=== PATIENT | male | born 1945 | race Caucasian/White ===

== ENCOUNTER 2017-06-06 17:59 | Emergency (ER) | payer MEDICARE ==
[~2017-06-06] VITALS: Ht 188 cm; Wt 127.0 kg
[~2017-06-06 17:59] MED LIST: AVELOX400 MG PO; CRESTOR10 MG PO; DILAUDID4 MG PO; DOXAZOSIN4 MG PO; LISINOPRIL5 MG PO; LOVENOX 4040 MG/0.4 SC; LYRICA150 MG PO; METFORMIN500 MG PO; METOPROL TAR100 MG PO; OXYGEN; STOOL SOFTENER100 M1 PO
[2017-06-06 18:40] LABS: HEMATOCRIT 22.9 % (39.0-50.0); HEMOGLOBIN 7.5 g/dl (14.0-18.0); IMMATURE GRANULOCYTES 1.1 % (0.0-1.0); MEAN CELL VOLUME 95.4 fL CALC (80.0-100.0); MEAN CORPUSCULAR HGB 31.3 pG CALC (26.0-32.0); MEAN CORPUSCULAR HGB CONC 32.8 g/L CALC (32.0-36.0); PLATELET COUNT 144 thou/uL (130-400); RED CELL DISTRI WIDTH 15.4 % (11.5-15.5)
[2017-06-06 18:52] LABS: ALBUMIN 2.6 g/dL (3.2-5.0); ALKALINE PHOSPHATASE 50 u/l (38-126); AMYLASE 43 u/l (30-110); ANION GAP 17 (6-22 (CALC)); BILIRUBIN, TOTAL 0.5 mg/dL (0.0-1.4); BUN 58 mg/dL (8-23); BUN/CREATININE RATIO 43 (12-20 (CALC)); CALCIUM 9.1 mg/dL (8.4-10.2); CARBON DIOXIDE 21 mmol/l (22-30); CHLORIDE 108 mmol/l (95-108); CREATININE 1.3 mg/dL (0.7-1.3); GFR 54 ML/MIN (>=60 (CALC)); GFR FOR AFR.AMER. > 60 ML/MIN (>=60 (CALC)); GLUCOSE 169 mg/dL (82-115); LIPASE 294 u/l (23-300); SGOT/AST 25 u/l (19-48); SGPT/ALT 27 u/l (11-66); SODIUM 141 mmol/l (137-146); TOTAL PROTEIN 4.9 g/dL (6.3-8.2)
[2017-06-06 19:00] LABS: BAND 5 % (0-8); HYPOCHROMIA FEW; MANUAL DIFFERENTIAL YES
[2017-06-06 19:01] LABS: INTERNATIONAL NORMALIZED RATIO 1.2 RATIO (0.7-1.3); PROTHROMBIN TIME 12.9 SECONDS (9.0-12.5)
[2017-06-06 19:02] LABS: MYOGLOBIN 35 ng/mL (0 - 121)
[2017-06-06 20:20] VITALS: BP 92/44
[2017-06-06 21:09] VITALS: BP 98/52
== END 2017-06-06 20:15 ==
LOC: ED 17:59
PROVIDERS: Emergency Medicine
PROC: 30233N1 Transfusion of Nonautologous Red Blood Cells into Peripheral Vein, Percutaneous Approach (ICD-10-PCS; principal; 2017-06-06)
DX: K92.2 Gastrointestinal hemorrhage, unspecified (principal); K74.60 Unspecified cirrhosis of liver; I10 Essential (primary) hypertension; E11.9 Type 2 diabetes mellitus without complications; Z79.84 Long term (current) use of oral hypoglycemic drugs; R53.1 Weakness; Z79.82 Long term (current) use of aspirin; Z99.81 Dependence on supplemental oxygen; N20.0 Calculus of kidney
CPT/HCPCS: P9016; S0164

== ENCOUNTER 2018-05-16 14:57 | Observation (INO) | payer MEDICARE ==
[~2018-05-16] VITALS: Ht 188 cm; Wt 139.0 kg
[~2018-05-16 14:57] MED LIST changes: +ACCUPRIL5 MG PO; +ASPIRIN325 MG PO; +DILAUDID2 MG PO; +KRISTALOSE20 GM PO; +MONDOXYNE NL100 MG PO; +PANTOPRAZOLE SO40 MG PO; +TOUJEO SOL300 UNIT/M SC; +XIFAXAN550 MG PO
--- NOTE | 2018-05-16 15:14 | NUR ---
PT TO ROOM VIA WHEELCHAIR FOR BEDSDIE TRIAGE.
--- NOTE | 2018-05-16 15:30 | NUR ---
IV INITATED AND LABS COLLECTED. PT'S REPORTS PERIODS OF CONFUSION STARTING THIS MORNING, WITH GENERALIZED WEAKNESS AND NAUSEA. PT A&O X3 AT THIS TIME AND ANSWERS QUESTIONS APPROPRIATELY. AND SOFT, NON TENDER UPON PALPATION, LS CLEAR BUT DIMINISHED IN THE BILATERAL LOWER LOBES. +1 BILATERAL PITTING EDEMA TO THE LOWER EXTREMITIES NOTED. PT AND AWARE OF PLAN OF CARE AND WAIT TIME. [facility]
[2018-05-16 16:00] LABS: URINE BILIRUBIN - DIPSTICK NEGATIVE (NEGATIVE); URINE BLOOD DIPSTICK MODERATE (NEGATIVE); URINE COLOR YELLOW; URINE GLUCOSE - DIPSTICK NEGATIVE (NEGATIVE); URINE KETONE NEGATIVE (NEGATIVE); URINE LEUK ESTERASE NEGATIVE (NEGATIVE); URINE NITRITE - DIPSTICK NEGATIVE (Negative); URINE PROTEIN - DIPSTICK NEGATIVE (NEG-TRACE); URINE SPECIFIC GRAVITY <=1.005; URINE UROBILINOGEN - DIPSTICK 0.2 E.U./dL (0.2)
[2018-05-16 16:01] LABS: URINE CLARITY CLEAR
[2018-05-16 16:02] LABS: HEMATOCRIT 38.3 % (39.0-50.0); HEMOGLOBIN 12.8 g/dl (14.0-18.0); MEAN CELL VOLUME 90.8 fL CALC (80.0-100.0); MEAN CORPUSCULAR HGB 30.3 pG CALC (26.0-32.0); MEAN CORPUSCULAR HGB CONC 33.4 g/L CALC (32.0-36.0); NEUT# 2.67 thou/uL (1.82-7.42); RED BLOOD COUNT 4.22 mill/uL (4.70-6.10); RED CELL DISTRI WIDTH 14.6 % (11.5-15.5)
[2018-05-16 16:09] LABS: URINE WBC 0-2 WBC/hpf (0-5)
[2018-05-16 16:13] LABS: INTERNATIONAL NORMALIZED RATIO 1.1 RATIO (0.7-1.3); PROTHROMBIN TIME 12.1 SECONDS (9.0-12.5)
[2018-05-16 16:22] LABS: ALBUMIN 3.7 g/dL (3.2-5.0); ALKALINE PHOSPHATASE 108 u/l (38-126); AMYLASE 84 u/l (30-110); ANION GAP 16 (6-22 (CALC)); BUN 18 mg/dL (8-23); BUN/CREATININE RATIO 17 (12-20 (CALC)); CARBON DIOXIDE 21 mmol/l (22-30); CHLORIDE 110 mmol/l (95-108); CREATININE 1.1 mg/dL (0.7-1.3); GFR > 60 ML/MIN (>=60 (CALC)); GFR FOR AFR.AMER. > 60 ML/MIN (>=60 (CALC)); LIPASE 198 u/l (23-300); POTASSIUM 4.2 mmol/l (3.5-5.1); SGOT/AST 42 u/l (19-48); SGPT/ALT 29 u/l (11-66); SODIUM 143 mmol/l (137-146); TOTAL PROTEIN 7.4 g/dL (6.3-8.2)
--- NOTE | 2018-05-16 16:30 | NUR ---
PT RESTING IN STRETCHER WITH EYES CLOSED BUT AWAKENS TO VERBAL STUIMULI. PT AWARE OF PENDING RESULTS AND WAIT TIME. CALL [facility] WITHIN REACH, WILL CONITNUE TO MONITOR.
[2018-05-16 16:33] LABS: MYOGLOBIN 84 ng/mL (0 - 121)
--- NOTE | 2018-05-16 17:00 | NUR ---
UNABLE TO RECONCILE MEDICATIONS AT THIS TIME. WILL BRING LIST IF PT IS ADMITTED.
--- NOTE | 2018-05-16 18:00 | NUR ---
MD AT BEDSIDE TO DISCUSS RESULTS AND PLAN FOR ADMISSION.
--- NOTE | 2018-05-16 18:08 | NUR ---
PT VOIDED 200 MLS OF PALE YELLOW URINE.
--- NOTE | 2018-05-16 18:18 | NUR ---
REPORT CALLED TO SHADI MOREIRA.
--- NOTE | 2018-05-16 18:30 | NUR ---
Admission Note Report Given to: SBAR PRINTED TO FLOOR Transported by: Wheelchair X Stretcher Transported with: X Nurse Transporter X Patent IV O2 X Shoe Stitcher
--- NOTE | 2018-05-16 18:33 | NUR ---
PT ARRIVED TO FLOOR VIA STRETCHER ACCOMPANIED BY JASON GRACE AND SPOUSE IN STABLE CONDITION;PT SELF TRANSFERRED TO BED WITH 2 PERSON ASSIST;RESPIRATIONS EVEN AND UNLABORED ON RA;PT REPORTS CHRONIC BACK PAIN AT TIMES;PT ORIENTED TO ROOM AND CAll LIGHT SYSTEM AND VERBALIZES UNDERSTANDING;FALL PRECAUTIONS IN PLACE WITH BED IN THE LOWEST POSITION;CALL LIGHT IN REACH;WILL CONTINUE TO MONITOR
[2018-05-16 18:35] VITALS: BP 118/60
--- NOTE | 2018-05-16 20:00 | NUR ---
PATIENT RESTING IN BED AT THIS TIME. PATIENT IS AWAKE ALERT AND ORIENTEDX3. PATIENT WITH TELE MONITORING DEVICE IN PLACE. IV SITE TO LEFT AC INTACT. AT BEDSIDE WITH PATIENT MEDS. CALL PLACED TO DR. QUEEN AND MED ORDERS RECIEVED. PATIENT TAKES HYDROMORPHONE HCL ER 8MG THAT IS NOT STOCKED HERE. LEFT HIS PERSCRIPTION HERE. PILLS WERE COUNTED AND HAD 17 PILLS-VERIFIED WITH Yasmin BUENO RN. SECURED IN MED ROOM IN SECURED BAG FOR PHARM IN AM. PATIENT TAKING PO FLUIDS AND TOLERATED WELL. ORIENTED TO ROOM AND SURROUNDINGS. INSTRUCTED ON USE OF NURSE CALL LIGHT SYSTEM. SAFETY PRECAUTIONS REVIEWED WITH PATIENT. CALL LIGHT IN REACH. WILL CONT TO MONITOR.
--- NOTE | 2018-05-16 22:00 | NUR ---
PATIENT RESTING IN BED. MEDICATED FOR BREAKTHRU PAIN WITH DILAUDID 2MG PO. IVF NS HUNG AND INFUSING AT 80CC/HR. C-PAP AT BEDSIDE. VOIDING OLEGARIO URINE IN URINAL. SAFETY PRECAUTIONS REINFORCED.CALL LIGHT IN REACH. WILL CONT TO MONITOR.
[2018-05-17] VITALS (7 sets, daily range): BP systolic 98–130; BP diastolic 45–58
--- NOTE | 2018-05-17 03:30 | NUR ---
PATIENT RESTING IN BED WITH C-PAP IN PLACE-APPEARS SLEEPING WITH EYES CLOSED. IVF PATENT AND INFUSING AT 80CC/HR. TELE MONITOR IN PLACE. CALL LIGHT IN REACH. WILL CONT TO MONITOR.
--- NOTE | 2018-05-17 06:43 | NUR ---
PATIENT RESTING IN BED-IVF NS PATENT AND INFUSING VIA LEFT AC SITE AT 80CC/HR. PATIENT MEDICATED WITH DILAUDID 2MG MG PO FOR BREAKTHRU PAIN. C-PAP AT BEDSIDE. CALL LIGHT IN REACH. WILL CONT TO MONITOR.
--- NOTE | 2018-05-17 08:30 | NUR ---
RECEIVED PT IN HIGH FOWLERS POSITION, ALERT, BREATH SOUNDS ARE CLEAR, BILATERALLY, NO C/O SOB, HR IS REG,PULSES ARE STRONG X4, ABD IS SOFT WITH ACTIVE BS, IV SITE IS FREE FROM REDNESS OR EDEMA. TELE MONITOR IN PLACE. CONTINUE TO OSBERVE AND MONITOR.
[2018-05-17] MEDS ORDERED: CARDURA4 MG PO (11:01)
[2018-05-17] MEDS ORDERED: METOPROL TAR25 MG PO (11:02)
[2018-05-17] MEDS ORDERED: ASPIRIN325 MG PO (11:02)
[2018-05-17] MEDS ORDERED: LISINOPRIL5 MG PO (11:03)
[2018-05-17] MEDS ORDERED: TOUJEO SOL300 UNIT/M SC (11:04)
[2018-05-17] MEDS ORDERED: PANTOPRAZOLE SO40 MG PO (11:04)
[2018-05-17] MEDS ORDERED: DOXYCYCL HYC100 MG PO (11:04)
[2018-05-17] MEDS ORDERED: CONSTULOSE10 GM/15 M PO (11:05)
[2018-05-17] MEDS ORDERED: XIFAXAN550 MG PO (11:06)
[2018-05-17] MEDS ORDERED: FUROSEMIDE20 MG PO (11:06)
[2018-05-17] MEDS ORDERED: PROBIOTI2 PO (11:07)
--- NOTE | 2018-05-17 12:30 | NUR ---
PT IS RELAXING IN BED WITH NO DISTRESS NOTED. IV SITE IS FREE FROM REDNESS OR EDEMA. TELE MONITOR IN PLACE.,
--- NOTE | 2018-05-17 15:14 | NUR ---
PT TO TIRED TO GET WASHED UP RIGHT NOW. PT WAS ASSISTED TO RECLINER FROM BED WITH WALKER. STAND BY ON ONE SIDE ASSOCIATE PROFESSOR OF ENGLISH ON THE OTHER. PT STEADY WITH WALKER. CALL [facility] IN REACH. LINENS CHANGED AT THIS TIME.
--- NOTE | 2018-05-17 16:49 | NUR ---
PT IS RELAXING IN CHAIR. IV SITE IS FREE FROM REDNESS OR EDEMA.
--- NOTE | 2018-05-17 19:36 | NUR ---
BEDSIDE REPORT RECEIVED FROM SHADI SANCHEZ. PT SITTING UP IN RECLINER WITH AT BEDSIDE. WAS UP TO BSC FOR LARGE BM. C/O ONLY ABOMINAL DISCOMFORT R/T LACTULOSE, BUT DENIES PAIN. RESPIRATIONS EVEN AND UNLABORED ON ROOM AIR. IV FLUIDS INFUSING. TELE ON. PLAN OF CARE DISCUSSED. PT ENCOURAGED TO VERABLIZE CONCERNS. STATES UNDERSTANDING. SAFETY MEASURES IN PLACE. CALL LIGHT WITHIN REACH.
--- NOTE | 2018-05-17 23:56 | NUR ---
PT RESTING IN BED SEMI FOWLERS WITH EYES CLOSED; AWAKENS TO VERBAL STIMULI. DENIES PAIN CURRENTLY. RESPIRATIONS EVEN AND UNLABORED WITH CPAP ON. IV FLUIDS INFUSING WITHOUT DIFFICULTY; IV SITE APPEARS HEALTHY. PT REMAINS STAND BY TO ONE PERSON ASSIST; USES CALL LIGHT PRN FOR ASSISTANCE. SAFETY MEASURES IN PLACE. CALL LIGHT WITHIN REACH.
[2018-05-18 04:00] VITALS: BP 97/49
[2018-05-18 05:17] LABS: HEMATOCRIT 33.4 % (39.0-50.0); HEMOGLOBIN 11.1 g/dl (14.0-18.0); IMMATURE GRANULOCYTES 0.2 % (0.0-5.0); MEAN CELL VOLUME 92.3 fL CALC (80.0-100.0); MEAN CORPUSCULAR HGB 30.7 pG CALC (26.0-32.0); MEAN CORPUSCULAR HGB CONC 33.2 g/L CALC (32.0-36.0); NEUT# 2.36 thou/uL (1.82-7.42); RED BLOOD COUNT 3.62 mill/uL (4.70-6.10); RED CELL DISTRI WIDTH 14.6 % (11.5-15.5)
--- NOTE | 2018-05-18 05:29 | NUR ---
PT ASLEEP AT THIS TIME WITH NO SIGNS OF DISTRESS. NO ACUTE CHANGES IN CONDITION THROUGHOUT THE NIGHT. SAFETY MEASURES IN PLACE. CALL LIGHT WITHIN REACH.
[2018-05-18 05:43] LABS: ALKALINE PHOSPHATASE 77 u/l (38-126); ANION GAP 10 (6-22 (CALC)); BILIRUBIN, TOTAL 1.2 mg/dL (0.0-1.4); BUN 17 mg/dL (8-23); BUN/CREATININE RATIO 16 (12-20 (CALC)); CARBON DIOXIDE 22 mmol/l (22-30); CHLORIDE 113 mmol/l (95-108); GFR > 60 ML/MIN (>=60 (CALC)); GFR FOR AFR.AMER. > 60 ML/MIN (>=60 (CALC)); MAGNESIUM 1.5 mg/dL (1.6-2.3); POTASSIUM 4.1 mmol/l (3.5-5.1); SGOT/AST 34 u/l (19-48); SGPT/ALT 23 u/l (11-66); SODIUM 141 mmol/l (137-146)
[2018-05-18 05:46] LABS: ALBUMIN 2.6 g/dL (3.2-5.0); TOTAL PROTEIN 5.4 g/dL (6.3-8.2)
--- NOTE | 2018-05-18 07:00 | NUR ---
SHIFT CHANGE REPORT FROM ROBERT, PT AWAKE ALERT AND ORIENTED RESTING IN BED, PLEASANTLY CONVERSANT, C/O LOWER BACK ACHING PAIN @ 5/10 BUT ONLY SCHEDULED MED, TELE MONITOR IN PLACE, IVF INFUSING, CALL [facility] IN REACH.
[2018-05-18 08:22] VITALS: BP 97/33
[2018-05-18 09:45] VITALS: BP 121/48
[2018-05-18 12:00] VITALS: BP 116/31
[2018-05-18 12:09] VITALS: BP 121/48
--- NOTE | 2018-05-18 12:42 | NUR ---
DR EMERSON ROUNDED, DISCUSSED PLAN OF CARE, PT STATED UNDRESTANDING, SPOUSE AT BEDSIDE, CALL [facility] IN REACH
--- NOTE | 2018-05-18 15:01 | NUR ---
Discharge instructions given. Patient verbalizes understanding of same. Discharged in fair condition via Wheelchair to Home with spouse. All belongings sent with pt.
== END 2018-05-18 15:04 | disposition home or self-care (01) ==
LOC: ED 14:57 → ED-I 17:18 → ED 18:12 → MS2 18:13
PROVIDERS: Emergency Medicine; Internal Medicine Nephrology; ADMIT Internal Medicine; ATTEND Internal Medicine
DX: K72.90 Hepatic failure, unspecified without coma (principal); K74.60 Unspecified cirrhosis of liver; I10 Essential (primary) hypertension; E72.20 Disorder of urea cycle metabolism, unspecified; E11.9 Type 2 diabetes mellitus without complications; M19.90 Unspecified osteoarthritis, unspecified site; I25.10 Atherosclerotic heart disease of native coronary artery without angina pectoris; M15.9 Polyosteoarthritis, unspecified; E66.01 Morbid (severe) obesity due to excess calories; Z91.14 Patient's other noncompliance with medication regimen; Z68.39 Body mass index [BMI] 39.0-39.9, adult; Z95.1 Presence of aortocoronary bypass graft

== ENCOUNTER 2020-02-07 08:11 | Observation (INO) | payer MEDICARE ==
[~2020-02-07] VITALS: Ht 188 cm; Wt 137.6 kg
[~2020-02-07 08:11] MED LIST changes: +CARDURA4 MG PO; +CONSTULOSE10 GM/15 M PO; +DOXYCYCL HYC100 MG PO; +FUROSEMIDE20 MG PO; +METOPROL TAR25 MG PO; +PROBIOTI2 PO
[2020-02-07 09:05] LABS: MEAN CELL VOLUME 96.6 fL CALC (80.0-100.0); MEAN CORPUSCULAR HGB 33.2 pG CALC (26.0-32.0); MEAN CORPUSCULAR HGB CONC 34.3 g/dL CAL (32.0-36.0); NEUT# 2.45 thou/uL (1.82-7.42); RED BLOOD COUNT 4.16 mill/uL (4.70-6.10); RED CELL DISTRI WIDTH 13.5 % (11.5-15.5)
[2020-02-07 09:25] LABS: HEMATOCRIT 40.2 % (39.0-50.0); HEMOGLOBIN 13.8 g/dl (14.0-18.0)
[2020-02-07 09:32] LABS: ACT PARTIAL THROMBO TIME 26.9 SECONDS (20.0-32.5); INTERNATIONAL NORMALIZED RATIO 1.2 RATIO (0.7-1.3); PROTHROMBIN TIME 12.1 SECONDS (9.0-12.5)
[2020-02-07 09:40] LABS: ALBUMIN 3.6 g/dL (3.2-5.0); ALKALINE PHOSPHATASE 122 u/l (38-126); AMYLASE 94 u/l (30-110); ANION GAP 11 (6-22 (CALC)); BILIRUBIN, TOTAL 1.1 mg/dL (0.0-1.4); BUN 17 mg/dL (8-23); BUN/CREATININE RATIO 16 (12-20 (CALC)); CARBON DIOXIDE 24 mmol/l (22-30); CHLORIDE 107 mmol/l (95-108); ETHYL ALCOHOL 0 mg/dl (0-30); GFR > 60 ML/MIN (>=60 (CALC)); GFR FOR AFR.AMER. > 60 ML/MIN (>=60 (CALC)); LIPASE 182 u/l (23-300); MAGNESIUM 1.7 mg/dL (1.6-2.3); POTASSIUM 4.6 mmol/l (3.5-5.1); SGOT/AST 44 u/l (19-48); SODIUM 137 mmol/l (137-146); TOTAL PROTEIN 7.2 g/dL (6.3-8.2)
[2020-02-07] MEDS ORDERED: DOXYCYCL HYC100 MG PO (10:21)
[2020-02-07 10:40] LABS: URINE BILIRUBIN - DIPSTICK NEGATIVE (NEGATIVE); URINE BLOOD DIPSTICK NEGATIVE (NEGATIVE); URINE COLOR YELLOW; URINE GLUCOSE - DIPSTICK NEGATIVE (NEGATIVE); URINE KETONE NEGATIVE (NEGATIVE); URINE LEUK ESTERASE NEGATIVE (NEGATIVE); URINE NITRITE - DIPSTICK NEGATIVE (Negative); URINE PROTEIN - DIPSTICK NEGATIVE (NEG-TRACE); URINE UROBILINOGEN - DIPSTICK 0.2 E.U./dL (0.2)
[2020-02-07 11:51] VITALS: BP 157/84
[2020-02-07 16:00] VITALS: BP 119/71
[2020-02-07 19:00] VITALS: BP 136/73
[2020-02-08 05:01] VITALS: BP 117/62
[2020-02-08 05:35] LABS: HEMATOCRIT 40.6 % (39.0-50.0); HEMOGLOBIN 13.5 g/dl (14.0-18.0); MEAN CELL VOLUME 97.4 fL CALC (80.0-100.0); MEAN CORPUSCULAR HGB 32.4 pG CALC (26.0-32.0); MEAN CORPUSCULAR HGB CONC 33.3 g/dL CAL (32.0-36.0); RED BLOOD COUNT 4.17 mill/uL (4.70-6.10); RED CELL DISTRI WIDTH 13.7 % (11.5-15.5)
[2020-02-08 05:57] LABS: ALKALINE PHOSPHATASE 93 u/l (38-126); ANION GAP 11 (6-22 (CALC)); BILIRUBIN, TOTAL 2.2 mg/dL (0.0-1.4); BUN 16 mg/dL (8-23); BUN/CREATININE RATIO 17 (12-20 (CALC)); CARBON DIOXIDE 21 mmol/l (22-30); CHLORIDE 109 mmol/l (95-108); GFR > 60 ML/MIN (>=60 (CALC)); GFR FOR AFR.AMER. > 60 ML/MIN (>=60 (CALC)); POTASSIUM 4.3 mmol/l (3.5-5.1); SGOT/AST 39 u/l (19-48); SODIUM 137 mmol/l (137-146); TOTAL PROTEIN 6.4 g/dL (6.3-8.2)
[2020-02-08 07:55] VITALS: BP 107/65
[2020-02-08 09:08] VITALS: BP 107/65
== END 2020-02-08 11:42 | disposition home or self-care (01) ==
LOC: ED 08:11 → ED-I 10:40 → ED 11:03 → ED-I 11:04 → MS2 11:27
PROVIDERS: Nurse Practitioner Family; ADMIT Internal Medicine; ATTEND Internal Medicine
DX: K72.90 Hepatic failure, unspecified without coma (principal); E72.20 Disorder of urea cycle metabolism, unspecified; K59.00 Constipation, unspecified; K74.60 Unspecified cirrhosis of liver; E11.9 Type 2 diabetes mellitus without complications; I10 Essential (primary) hypertension; I48.92 Unspecified atrial flutter; I25.10 Atherosclerotic heart disease of native coronary artery without angina pectoris; T84.84XA Pain due to internal orthopedic prosthetic devices, implants and grafts, initial encounter; Y83.1 Surgical operation with implant of artificial internal device as the cause of abnormal reaction of the patient, or of later complication, without mention of misadventure at the time of the procedure; T47.3X6A Underdosing of saline and osmotic laxatives, initial encounter; Z91.128 Patient's intentional underdosing of medication regimen for other reason; Z99.81 Dependence on supplemental oxygen; Z95.1 Presence of aortocoronary bypass graft; Z79.4 Long term (current) use of insulin; Z79.2 Long term (current) use of antibiotics; Z96.653 Presence of artificial knee joint, bilateral; Z20.828 Contact with and (suspected) exposure to other viral communicable diseases
CPT/HCPCS: G0378

== ENCOUNTER 2022-06-19 12:42 | Observation (INO) | payer MEDICARE ==
[2022-06-19] VITALS (17 sets, daily range): BP systolic 118–139; BP diastolic 40–85
[~2022-06-19] VITALS: Ht 188 cm; Wt 118.1 kg
--- NOTE | 2022-06-19 12:42 | NUR ---
PT TO ROOM VIA EMS STRETCHER
[2022-06-19 13:25] LABS: HEMATOCRIT 41.9 % (39.0-50.0); HEMOGLOBIN 13.9 g/dl (14.0-18.0); MEAN CELL VOLUME 101.5 fL CALC (80.0-100.0); MEAN CORPUSCULAR HGB 33.7 pG CALC (26.0-32.0); MEAN CORPUSCULAR HGB CONC 33.2 g/dL CAL (32.0-36.0); NEUT# 1.97 thou/uL (1.82-7.42); RED BLOOD COUNT 4.13 mill/uL (4.70-6.10); RED CELL DISTRI WIDTH 14.6 % (11.5-15.5)
[2022-06-19 13:39] LABS: ALBUMIN 2.9 g/dL (3.2-5.0); ALKALINE PHOSPHATASE 132 u/l (38-126); ANION GAP 15 (6-22 (CALC)); BILIRUBIN, TOTAL 2.6 mg/dL (0.0-1.4); BUN 13 mg/dL (8-23); BUN/CREATININE RATIO 13 (12-20 (CALC)); CARBON DIOXIDE 18 mmol/l (22-30); CHLORIDE 112 mmol/l (95-108); GFR FOR AFR.AMER. > 60 ML/MIN (>=60 (CALC)); GFR OTHER RACES > 60 ML/MIN (>=60 (CALC)); INTERNATIONAL NORMALIZED RATIO 1.4 RATIO (0.7-1.3); LIPASE 173 u/l (23-300); POTASSIUM 4.5 mmol/l (3.5-5.1); PROTHROMBIN TIME 13.4 SECONDS (9.0-12.5); SGOT/AST 35 u/l (19-48); SODIUM 141 mmol/l (137-146); TOTAL PROTEIN 6.3 g/dL (6.3-8.2)
[2022-06-19 15:54] LABS: URINE BILIRUBIN - DIPSTICK NEGATIVE (NEGATIVE); URINE BLOOD DIPSTICK NEGATIVE (NEGATIVE); URINE COLOR YELLOW; URINE GLUCOSE - DIPSTICK NEGATIVE (NEGATIVE); URINE KETONE NEGATIVE (NEGATIVE); URINE LEUK ESTERASE NEGATIVE (NEGATIVE); URINE PROTEIN - DIPSTICK NEGATIVE (NEG-TRACE); URINE UROBILINOGEN - DIPSTICK 0.2 E.U./dL (0.2)
[2022-06-19 15:55] LABS: URINE NITRITE - DIPSTICK NEGATIVE (Negative)
--- NOTE | 2022-06-19 17:30 | NUR ---
PT RESTING IN HIGH FOWLERS POSITION. PT ARRIVED TO MD VIA STRETCHER C/O NEEDING TO USE BM. PT MAX ASSIST ASSISTED TO BSC. PT UNSTEADY ON FEET. USED WALKER FOR SUPPORT. PT EDUCATED TO USE CALL LIGHT NEEDED FOR HELP . EDUCATED TO NOT TRY TO GET OUT OF BED USE CALL LIGHT.HIGH FALL RISK. HEART MONITOR IN PLACE. HX OF AFIB. IV SITE NOTED TO RAC S.L. SKIN INTACT. PT DENIES ADDITIONAL NEEDS AT THE TIME ALL SAFETY PRECAUTIONS IN PLACE WITH CALL LIGHT IN REACH.
--- NOTE | 2022-06-19 17:44 | NUR ---
BEDSIDE REPORT GIVEN
--- NOTE | 2022-06-19 20:00 | NUR ---
PT SITTING ON BED LOW FOWLERS: PT A&O X2. EVEN AND UNLABORED RESPIRATIONS; CLEAR LUNG SOUNDS UPON AUSCULTATION. TELEMETRY IN PLACE. IV SITE FLUSHED: #20G RT AC, HEALTHY AND PATENT. ACTIVE BOWEL SOUNDS X4 QUADRANTS. EDEMA NOTED ON ALISON LOWER EXTREMITIES. MALE PUREWICK IN PLACE. SAFETY PRECAUTIONS IN PLACE WITH CALL LIGHT IN REACH.
--- NOTE | 2022-06-19 22:50 | NUR ---
PT C/O LOWER BACK PAIN, LEVEL 8/10; ADMINISTERED PAIN MEDICATION PER EMAR. SAFETY PRECAUTIONS IN PLACE WITH CALL LIGHT IN REACH.
--- NOTE | 2022-06-20 | NUR ---
PT RESTING WITH EYES CLOSED. NO DISTRESS OR PAIN NOTED. NO NEEDS AT THIS TIME. SAFETY PRECAUTIONS IN PLACE WITH CALL LIGHT IN REACH.
[2022-06-20 03:50] VITALS: BP 127/65
--- NOTE | 2022-06-20 03:50 | NUR ---
PT SLEEPING. NO DISTRESS OR PAIN NOTED. VS OBTAINED AT THIS TIME. IV SITE HEALTHY AND PATENT. MALE PUREWICK IN PLACE. SAFETY PRECAUTIONS IN PLACE WITH CALL LIGHT IN REACH.
[2022-06-20 05:29] LABS: HEMATOCRIT 38.6 % (39.0-50.0); HEMOGLOBIN 12.9 g/dl (14.0-18.0); MEAN CELL VOLUME 102.4 fL CALC (80.0-100.0); MEAN CORPUSCULAR HGB 34.2 pG CALC (26.0-32.0); MEAN CORPUSCULAR HGB CONC 33.4 g/dL CAL (32.0-36.0); RED BLOOD COUNT 3.77 mill/uL (4.70-6.10)
[2022-06-20 05:44] LABS: ALBUMIN 2.6 g/dL (3.2-5.0); ALKALINE PHOSPHATASE 105 u/l (38-126); ANION GAP 12 (6-22 (CALC)); BILIRUBIN, TOTAL 3.1 mg/dL (0.0-1.4); BUN 15 mg/dL (8-23); BUN/CREATININE RATIO 15 (12-20 (CALC)); CARBON DIOXIDE 20 mmol/l (22-30); CHLORIDE 114 mmol/l (95-108); GFR FOR AFR.AMER. > 60 ML/MIN (>=60 (CALC)); GFR OTHER RACES > 60 ML/MIN (>=60 (CALC)); MAGNESIUM 1.7 mg/dL (1.6-2.3); POTASSIUM 4.4 mmol/l (3.5-5.1); SGOT/AST 30 u/l (19-48); SODIUM 141 mmol/l (137-146); TOTAL PROTEIN 5.8 g/dL (6.3-8.2)
[2022-06-20 07:00] VITALS: BP 115/61
[2022-06-20 07:38] VITALS: BP 115/61
--- NOTE | 2022-06-20 07:52 | NUR ---
pt sitting in bed attempting to eat breakfast. a&o. no distress noted. pt reports feeling better today compared to yesterday. clear breath sounds upon auscultation. active bowel sounds x4 quadrants. edema noted to ble. no other needs. iv healthy and patent. compliance monitor in place. call light within reach.
--- NOTE | 2022-06-20 08:17 | NUR ---
PER DEREK MO IN ED PT SHOWING AFIB ON MONITOR SINCE 0000, BUT NO HX SEEN ON CHART, THIS [employer] MANAGER SPOKE WITH PT. PER PT HE HAS A HX OF AFIB UNABLE TO RECALL WHEN HE WAS DIAGNOSED, STATES IT WAS MANY "YEARS AGO". ORDER FOR EKG OBTAINED TO REFLECT RHYTHM CHANGE COMPARED TO ADMIT.
--- NOTE | 2022-06-20 10:29 | NUR ---
DR QUEEN AT BEDSIDE FOR ASSESSMENT AND DISCUSSION OF POC
[2022-06-20 11:16] VITALS: BP 126/49
--- NOTE | 2022-06-20 11:35 | NUR ---
Pt assisted into chair with walker with the assistance of Owen CARLTON, pt able to tolerate activity well, at bedside. pt agreeable for d/c per and pt pt has HH and PT outpt, pt has all mobility devices if needed. no other needs reported. call light within reach.
--- NOTE | 2022-06-20 13:38 | NUR ---
Discharge instructions given. Patient verbalizes understanding of same. Discharged in stable condition via Wheelchair to Home accompanied by & staff. All belongings sent with pt.
== END 2022-06-20 13:38 | disposition home health service (06) ==
LOC: ED 12:42 → ED-I 14:45 → ED 15:52 → MS2 15:53
PROVIDERS: Nurse Practitioner; ADMIT Internal Medicine; ATTEND Internal Medicine
DX: E72.20 Disorder of urea cycle metabolism, unspecified (principal); G93.41 Metabolic encephalopathy; K74.60 Unspecified cirrhosis of liver; I10 Essential (primary) hypertension; E11.9 Type 2 diabetes mellitus without complications; I25.10 Atherosclerotic heart disease of native coronary artery without angina pectoris; T47.3X6A Underdosing of saline and osmotic laxatives, initial encounter; Z91.138 Patient's unintentional underdosing of medication regimen for other reason; Z95.1 Presence of aortocoronary bypass graft; Z79.4 Long term (current) use of insulin; Z20.822 Contact with and (suspected) exposure to COVID-19

== ENCOUNTER 2023-01-27 17:30 | Emergency (ER) | payer MEDICARE ==
[~2023-01-27] VITALS: Ht 188 cm; Wt 136.0 kg
[2023-01-27] VITALS (7 sets, daily range): BP systolic 90–118; BP diastolic 35–63
[2023-01-27] MEDS ORDERED: MONTELUKAST SOD10 MG PO (17:46)
[2023-01-27 18:33] LABS: BASO% 0.4 % (0-3); EOS% 0.8 % (0-8); HEMATOCRIT 35.4 % (39.0-50.0); HEMOGLOBIN 11.3 g/dl (14.0-18.0); IMMATURE GRANULOCYTES 0.2 % (0.0-5.0); LYMPH% 9.5 % (15-41); MEAN CORPUSCULAR HGB 33.8 pG CALC (26.0-32.0); MEAN CORPUSCULAR HGB CONC 31.9 g/dL CAL (32.0-36.0); MONO% 8.2 % (2-13); NEUT# 3.84 thou/uL (1.82-7.42); NEUT% 80.9 % (42-76); RED BLOOD COUNT 3.34 mill/uL (4.70-6.10)
[2023-01-27 18:53] LABS: ALBUMIN 2.6 g/dL (3.2-5.0); ALKALINE PHOSPHATASE 77 u/l (38-126); ANION GAP 11 (6-22 (CALC)); BILIRUBIN, TOTAL 1.8 mg/dL (0.2-1.3); BUN 24 mg/dL (8-23); BUN/CREATININE RATIO 24 (12-20 (CALC)); CARBON DIOXIDE 22 mmol/l (22-30); CHLORIDE 112 mmol/l (95-108); GFR FOR AFR.AMER. > 60 ML/MIN (>=60 (CALC)); GFR OTHER RACES > 60 ML/MIN (>=60 (CALC)); POTASSIUM 5.5 mmol/l (3.5-5.1); SGOT/AST 38 u/l (19-48); SODIUM 139 mmol/l (137-146); TOTAL PROTEIN 5.9 g/dL (6.3-8.2)
[2023-01-27 19:02] LABS: INTERNATIONAL NORMALIZED RATIO 1.5 RATIO (0.7-1.3); PROTHROMBIN TIME 14.2 SECONDS (9.0-12.5)
== END 2023-01-27 21:50 | disposition short-term general hospital (02) ==
LOC: ED 17:30
PROVIDERS: Nurse Practitioner
PROC: 30233N1 Transfusion of Nonautologous Red Blood Cells into Peripheral Vein, Percutaneous Approach (ICD-10-PCS; principal; 2023-01-27)
PROC: 30233N1 Transfusion of Nonautologous Red Blood Cells into Peripheral Vein, Percutaneous Approach (ICD-10-PCS; 2023-01-27)
DX: K92.0 Hematemesis (principal); I10 Essential (primary) hypertension; E11.9 Type 2 diabetes mellitus without complications; Z95.1 Presence of aortocoronary bypass graft; K74.60 Unspecified cirrhosis of liver; Z79.4 Long term (current) use of insulin; Z90.411 Acquired partial absence of pancreas
CPT/HCPCS: J2354; P9016; Q9967; S0164

== ENCOUNTER 2023-10-24 12:58 | Inpatient (IN) | payer MEDICARE ==
[~2023-10-24] VITALS: Ht 188 cm; Wt 117.5 kg
[2023-10-24] VITALS (61 sets, daily range): BP systolic 65–157; BP diastolic 37–128
[~2023-10-24 12:58] MED LIST changes: +ALDACTONE50 MG PO; +ASPIRINCHW 81MG PO; +BETA GLUCAN PO; +INDERAL10 MG PO; +IRON28 M1 PO; +LASIX 20 MG TAB20 MG PO; +MONTELUKAST SOD10 MG PO
[2023-10-24] MEDS ORDERED: SODIUM CHLORIDE 0.9% 1,000 ML IV ONE ×2 (13:45→17:05)
[2023-10-24] MEDS ORDERED: KETOROLAC TROMETHAMINE 30 MG/ML SDV IV ONE (14:10)
[2023-10-24 14:21] LABS: BASO% 0.2 % (0-3); EOS% 1.3 % (0-8); IMMATURE GRANULOCYTES 0.3 % (0.0-5.0); LYMPH% 9.2 % (15-41); MEAN CORPUSCULAR HGB 33.8 pG CALC (26.0-32.0); MEAN CORPUSCULAR HGB CONC 34.6 g/dL CAL (32.0-36.0); MONO% 10.5 % (2-13); NEUT# 7.33 thou/uL (1.82-7.42); NEUT% 78.5 % (42-76); RED BLOOD COUNT 4.56 mill/uL (4.70-6.10); RED CELL DISTRI WIDTH 15.1 % (11.5-15.5)
[2023-10-24 14:28] LABS: ALBUMIN 2.7 g/dL (3.2-5.0); CREATININE 1.4 mg/dL (0.7-1.3); POTASSIUM 4.6 mmol/l (3.5-5.1); TOTAL PROTEIN 6.7 g/dL (6.3-8.2)
[2023-10-24 14:31] LABS: BILIRUBIN, TOTAL 4.3 mg/dL (0.2-1.3)
[2023-10-24 14:34] LABS: HEMATOCRIT 44.5 % (39.0-50.0); HEMOGLOBIN 15.4 g/dl (14.0-18.0); MEAN CELL VOLUME 97.6 fL CALC (80.0-100.0)
[2023-10-24] MEDS ORDERED: SODIUM CHLORIDE 0.9% 500 ML IV ONE ×3 (17:55→21:45)
[2023-10-24] MEDS ORDERED: NOREPINEPHRINE BITARTRATE 4 MG in DEXTROSE 5% 250 ML IV ONE (17:55)
[2023-10-24] MEDS ORDERED: cefTRIAXone SODIUM 2 GM in SODIUM CHLORIDE 0.9% 100 ML IV ONE (17:55)
[2023-10-24 18:26] LABS: URINE BLOOD DIPSTICK Trace-lysed (NEGATIVE); URINE COLOR Dark yellow; URINE GLUCOSE - DIPSTICK Negative (NEGATIVE); URINE KETONE Trace mg/dL (NEGATIVE); URINE LEUK ESTERASE Negative (NEGATIVE); URINE NITRITE - DIPSTICK Negative (Negative); URINE PH 5.5 (4.5-8.0); URINE PROTEIN - DIPSTICK Negative (NEG-TRACE); URINE SPECIFIC GRAVITY 1.025; URINE UROBILINOGEN - DIPSTICK 0.2 E.U./dL (0.2)
[2023-10-24] MEDS ORDERED: MORPHINE SULFATE 4 MG/ML VIAL IV ONE (18:40)
[2023-10-24] MEDS ORDERED: NOREPINEPHRINE BITARTRATE 4 MG in DEXTROSE 5% 250 ML IV PRN (21:45)
[2023-10-24] MEDS ORDERED: MAGNESIUM HYDROXIDE 30 ML UDC PO PRN (21:45)
[2023-10-24] MEDS ORDERED: SODIUM CHLORIDE 0.9% 1,000 ML IV PRN (21:45)
[2023-10-24] MEDS ORDERED: ACETAMINOPHEN 325 MG/TAB PO PRN (21:45)
[2023-10-24] MEDS ORDERED: LACTULOSE 20 GM/30 ML UDC PO PRN (21:50)
[2023-10-24] MEDS ORDERED: MORPHINE SULFATE 4 MG/ML VIAL IV PRN (22:00)
[2023-10-25] VITALS (94 sets, daily range): BP systolic 56–125; BP diastolic 36–94
[2023-10-25 05:18] LABS: BASO% 0.5 % (0-3); EOS% 7.5 % (0-8); IMMATURE GRANULOCYTES 0.4 % (0.0-5.0); LYMPH% 17.5 % (15-41); MEAN CELL VOLUME 97.9 fL CALC (80.0-100.0); MEAN CORPUSCULAR HGB 34.3 pG CALC (26.0-32.0); MONO% 13.7 % (2-13); NEUT# 4.41 thou/uL (1.82-7.42); NEUT% 60.4 % (42-76); RED BLOOD COUNT 3.88 mill/uL (4.70-6.10); RED CELL DISTRI WIDTH 15.4 % (11.5-15.5)
[2023-10-25 05:20] LABS: HEMOGLOBIN 13.3 g/dl (14.0-18.0)
[2023-10-25 05:27] LABS: ALKALINE PHOSPHATASE 149 u/l (38-126); ANION GAP 7 (6-22 (CALC)); BILIRUBIN, TOTAL 2.9 mg/dL (0.2-1.3); BUN 30 mg/dL (8-23); BUN/CREATININE RATIO 25 (12-20 (CALC)); CARBON DIOXIDE 25 mmol/l (22-30); CHLORIDE 101 mmol/l (95-108); CREATININE 1.2 mg/dL (0.7-1.3); GFR FOR AFR.AMER. > 60 ML/MIN (>=60 (CALC)); GFR OTHER RACES 59 ML/MIN (>=60 (CALC)); HDL CHOLESTEROL 23 mg/dL (39.0-59.0); MAGNESIUM 1.6 mg/dL (1.6-2.3); SGOT/AST 44 u/l (19-48); SODIUM 129 mmol/l (137-146); TOTAL TRIGLYCERIDES 53 mg/dl (0-149); VLDL CHOLESTROL 11 mg/dl (0-38 (CALC))
[2023-10-25 05:28] LABS: CALCULATED LDLCHOLESTEROL 45 mg/dL (62-129 (CALC)); CHOLESTEROL HDL RATIO 3.4 (<4.4 (CALC)); TOTAL CHOLESTEROL 79 mg/dl (0-199); TOTAL PROTEIN 5.3 g/dL (6.3-8.2)
[2023-10-25] MEDS ORDERED: INSULIN LISPRO 100 UNITS/ML ML SC SCH (07:00)
[2023-10-25] MEDS ORDERED: MAGNESIUM SULFATE HEPTAHYDRATE 50 ML IV SCH (08:00)
[2023-10-25] MEDS ORDERED: INSULIN DETEMIR 100 UNITS/ML SC SCH (09:00)
[2023-10-25 09:32] LABS: ACT PARTIAL THROMBO TIME 31.2 SECONDS (20.0-32.5); INTERNATIONAL NORMALIZED RATIO 1.6 RATIO (0.7-1.3); PROTHROMBIN TIME 15.2 SECONDS (9.0-12.5)
[2023-10-25] MEDS ORDERED: HYDROCORTISONE SODIUM SUCCINAT 100 MG VIAL IV SCH (15:30)
[2023-10-25] MEDS ORDERED: cefTRIAXone SODIUM 2 GM in SODIUM CHLORIDE 0.9% 100 ML IV SCH (18:00)
[2023-10-25] MEDS ORDERED: MIDODRINE HCL 5 MG TAB PO SCH (21:00)
[2023-10-26] VITALS (7 sets, daily range): BP systolic 96–145; BP diastolic 45–78
[2023-10-26 06:24] LABS: HEMATOCRIT 36.1 % (39.0-50.0); HEMOGLOBIN 12.1 g/dl (14.0-18.0); IMMATURE GRANULOCYTES 0.4 % (0.0-5.0); LYMPH% 7.7 % (15-41); MEAN CELL VOLUME 98.9 fL CALC (80.0-100.0); MEAN CORPUSCULAR HGB 33.2 pG CALC (26.0-32.0); MEAN CORPUSCULAR HGB CONC 33.5 g/dL CAL (32.0-36.0); MONO% 9.5 % (2-13); NEUT# 4.49 thou/uL (1.82-7.42); NEUT% 82.4 % (42-76); RED BLOOD COUNT 3.65 mill/uL (4.70-6.10); RED CELL DISTRI WIDTH 15.4 % (11.5-15.5)
[2023-10-26 06:58] LABS: ALBUMIN 1.9 g/dL (3.2-5.0); ALKALINE PHOSPHATASE 154 u/l (38-126); ANION GAP 5 (6-22 (CALC)); BUN 22 mg/dL (8-23); BUN/CREATININE RATIO 21 (12-20 (CALC)); CARBON DIOXIDE 27 mmol/l (22-30); CHLORIDE 106 mmol/l (95-108); GFR FOR AFR.AMER. > 60 ML/MIN (>=60 (CALC)); GFR OTHER RACES > 60 ML/MIN (>=60 (CALC)); MAGNESIUM 1.9 mg/dL (1.6-2.3); POTASSIUM 4.6 mmol/l (3.5-5.1); SGOT/AST 44 u/l (19-48); SODIUM 133 mmol/l (137-146); TOTAL PROTEIN 5.1 g/dL (6.3-8.2)
[2023-10-26 07:07] LABS: BILIRUBIN, TOTAL 1.4 mg/dL (0.2-1.3)
[2023-10-27] VITALS (7 sets, daily range): BP systolic 91–134; BP diastolic 47–71
[2023-10-27 06:32] LABS: BASO% 0.1 % (0-3); EOS% 0.3 % (0-8); HEMATOCRIT 35.6 % (39.0-50.0); HEMOGLOBIN 12.4 g/dl (14.0-18.0); IMMATURE GRANULOCYTES 0.3 % (0.0-5.0); LYMPH% 7.8 % (15-41); MEAN CELL VOLUME 99.2 fL CALC (80.0-100.0); MEAN CORPUSCULAR HGB 34.5 pG CALC (26.0-32.0); MEAN CORPUSCULAR HGB CONC 34.8 g/dL CAL (32.0-36.0); MONO% 9.7 % (2-13); NEUT# 5.63 thou/uL (1.82-7.42); NEUT% 81.8 % (42-76); RED BLOOD COUNT 3.59 mill/uL (4.70-6.10); RED CELL DISTRI WIDTH 15.6 % (11.5-15.5)
[2023-10-27 06:35] LABS: ALKALINE PHOSPHATASE 157 u/l (38-126); ANION GAP 3 (6-22 (CALC)); BILIRUBIN, TOTAL 1.7 mg/dL (0.2-1.3); BUN 19 mg/dL (8-23); BUN/CREATININE RATIO 24 (12-20 (CALC)); CARBON DIOXIDE 26 mmol/l (22-30); CHLORIDE 110 mmol/l (95-108); CREATININE 0.8 mg/dL (0.7-1.3); GFR FOR AFR.AMER. > 60 ML/MIN (>=60 (CALC)); GFR OTHER RACES > 60 ML/MIN (>=60 (CALC)); MAGNESIUM 1.8 mg/dL (1.6-2.3); POTASSIUM 4.6 mmol/l (3.5-5.1); SGOT/AST 43 u/l (19-48); SODIUM 134 mmol/l (137-146); TOTAL PROTEIN 5.2 g/dL (6.3-8.2)
[2023-10-27] MEDS ORDERED: MIDODRINE5 MG PO (14:02)
[2023-10-27] MEDS ORDERED: XIFAXAN200 MG PO (14:02)
[2023-10-27] MEDS ORDERED: CLARIFY DOSE PO PRN (21:20)
[2023-10-28 04:15] VITALS: BP 105/56
[2023-10-28 05:23] VITALS: BP 105/56
[2023-10-28 07:30] VITALS: BP 102/55
[2023-10-28 11:00] VITALS: BP 113/45
[2023-10-28] MEDS ORDERED: LIDOCAINE 4 % PATCH TD SCH (13:00)
[2023-10-28 15:00] VITALS: BP 101/61
[2023-10-28] MEDS ORDERED: PERCOCET 5/325M1 TAB PO (15:10)
== END 2023-10-28 18:00 | DRG 291 ==
LOC: ED 12:58 → ED-I 21:20 → ED 21:50 → MS2 21:51 → ED-I 21:51 → MS2 10-25 18:22
PROVIDERS: Family Medicine; ADMIT Student in an Organized Health Care Education/Training Program; ATTEND Student in an Organized Health Care Education/Training Program
PROC: 06HY33Z Insertion of Infusion Device into Lower Vein, Percutaneous Approach (ICD-10-PCS; principal; 2023-10-24)
PROC: 3E043XZ Introduction of Vasopressor into Central Vein, Percutaneous Approach (ICD-10-PCS; 2023-10-24)
DX: R57.9 Shock, unspecified (principal); J96.01 Acute respiratory failure with hypoxia; E87.1 Hypo-osmolality and hyponatremia; E87.20 Acidosis, unspecified; K76.6 Portal hypertension; I48.3 Typical atrial flutter; E86.0 Dehydration; I12.9 Hypertensive chronic kidney disease with stage 1 through stage 4 chronic kidney disease, or unspecified chronic kidney disease; E11.22 Type 2 diabetes mellitus with diabetic chronic kidney disease; N18.9 Chronic kidney disease, unspecified; E11.59 Type 2 diabetes mellitus with other circulatory complications; I25.10 Atherosclerotic heart disease of native coronary artery without angina pectoris; K74.60 Unspecified cirrhosis of liver; K21.9 Gastro-esophageal reflux disease without esophagitis; Z79.4 Long term (current) use of insulin; Z87.81 Personal history of (healed) traumatic fracture; Z95.1 Presence of aortocoronary bypass graft; Z95.828 Presence of other vascular implants and grafts; Z79.2 Long term (current) use of antibiotics; Z96.653 Presence of artificial knee joint, bilateral; Z20.822 Contact with and (suspected) exposure to COVID-19; Z98.890 Other specified postprocedural states
CPT/HCPCS: J3475; Q9967